=== PATIENT | male | born 1995 | race Caucasian/White ===

== ENCOUNTER 2018-04-20 11:57 | Emergency (ER) | payer OTHER ==
[2018-04-20] MEDS: NORCO, ANEXSIA 5/325MG TABLET (HYDROcodone/ACETAMINOPHEN) PO (12:45)
== END 2018-04-20 13:11 | disposition home or self-care (01) ==
LOC: M ED 11:57
DX: L02.414 Cutaneous abscess of left upper limb (principal); L03.114 Cellulitis of left upper limb
CPT/HCPCS: 87186

== ENCOUNTER 2019-12-11 04:34 | Emergency (ER) | payer OTHER ==
[~2019-12-11] VITALS: Ht 180.3 cm; Wt 97.7 kg
[~2019-12-11 04:34] MED LIST: BACT800T5 PO; CEPH500C PO; HYDR-3715 PO
[2019-12-11] MEDS ORDERED: TIZA2TAB6 (04:39)
[2019-12-11] MEDS ORDERED: MORPHINE 10 MG/ML 1ML VIAL (J2270) IM ONE (05:15)
[2019-12-11] MEDS ORDERED: PERC5TAB12 PO (05:58)
[2019-12-11] MEDS ORDERED: OXYCODONE/APAP 5MG/325MG(BULK FOR ED) 1 TABLET PO ONE (06:00)
[2019-12-11 06:34] VITALS: BP 143/68
--- NOTE | 2019-12-11 08:16 | REP ---
Clinical: Trauma. Technique: AP, lateral, bilateral oblique views of the right ankle. Findings: Medial and posterior malleolar fractures along with disruption and widening of the ankle joint and soft tissue swelling noted. Impression: Multipartite fractures of the distal tibia with disruption of the joint space and soft tissue swelling. Electronically Signed by Doron Estevez MD 12/11/2019 08:07 A
--- NOTE | 2019-12-14 09:59 | ED PDOC ---
Post-Departure Follow-Up dr berrios faxed formal report of right ankle film for fu So Duke MD Dec 14, 2019 09:59
== END 2019-12-11 06:39 | disposition home or self-care (01) ==
LOC: M ED 04:34
DX: S82.301A Unspecified fracture of lower end of right tibia, initial encounter for closed fracture (principal); W17.81XA Fall down embankment (hill), initial encounter; Y92.9 Unspecified place or not applicable; Y93.K1 Activity, walking an animal
CPT/HCPCS: 73610; 96372; 99284; J2270